=== PATIENT | male | born 1930 | race American Indian/Alaskan Native ===

== ENCOUNTER 2021-09-15 22:40 | Emergency (ER) | payer SELFPAY ==
[2021-09-15] MEDS ORDERED: EPINEPHrine 1 MG/10 ML SYRINGE ONE (22:55)
--- NOTE | 2021-09-15 23:25 | Emergency Department Report ---
ED General Adult HPI - General Stated complaint: CARDIAC ARREST PUI?: Yes Time Seen by Provider: 09/15/21 23:18 Source: family, EMS Limitations: Other (unresponsive ) - History of Present Illness Initial comments: witnessed cardiac arrest by family one angely prior to arrival multple medical problems , recently diagnsoed with covid pneumonia, intbated at the scene and epi givenw ith asystole . ED Review of Systems ROS: Stated complaint: CARDIAC ARREST Other details as noted in HPI Comment: Unobtainable due to pts medical conditions ED Past Medical Hx - Past Medical History Previous Medical History?: No Hx Hypertension: No ED Physical Exam - General Limitations: Other (unresponisve ) General appearance: cachectic, other (unresponisve ) - Head Head exam: Present: atraumatic, normocephalic - Eye Eye exam: Present: other (dilated fixed ) - ENT ENT exam: Present: normal exam - Neck Neck exam: Present: normal inspection - Respiratory Respiratory exam: Present: other (no spinta breathing ) - Cardiovascular Cardiovascular Exam: Present: other (no spont pulse ) - GI/Abdominal GI/Abdominal exam: Present: soft - Skin Skin exam: Present: dry, other (NF ) ED Medical Decision Making - Medical Decision Making pt arrived intubated has an IO to right tibia , asystole, fixed dilated pupil, spi given with no change , pronounced at [id number] Critical care attestation.: If time is entered above; I have spent that time in minutes in the direct care of this critically ill patient, excluding procedure time. ED Disposition Clinical Impression: Cardiac arrest Disposition: 20 Is pt being admited?: No Does the pt Need Aspirin: No Condition: Undetermined
== END 2021-09-16 08:45 ==
LOC: ED 22:40
DX: I46.9 Cardiac arrest, cause unspecified (principal)
CPT/HCPCS: 99285; J0171